=== PATIENT | female | born 1995 | race Caucasian/White ===

== ENCOUNTER 2016-09-08 17:02 | Emergency (ER) | payer OTHER, MEDICAID ==
[2016-09-08 17:17] VITALS: BP 130/90
[2016-09-08] MEDS ORDERED: Diphtheria,Pertussis(Acell),Tetanus Vaccine 0.5 ML SDV inactive IM ONE (17:29)
--- NOTE | 2016-09-08 17:36 | EDM.PDOC ---
ED HPI GENERAL MEDICAL PROBLEM - General Chief Complaint: Upper Extremity Injury/Pain Stated Complaint: RIGHT MIDDLE FINGER LACERATION Time Seen by Provider: 09/08/16 17:30 Source of Information: Reports: Patient History Limitations: Reports: No Limitations - History of Present Illness INITIAL COMMENTS - FREE TEXT/NARRATIVE: 21-year-old female presents the ED with a work related injury. 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 She suffered a laceration to the volar distal aspect of her right middle finger. Patient is right-hand dominant. Last tetanus toxoid was probably at age 12 or 13. No other injuries occurred. Onset: Today Onset Date: 09/08/16 Onset Time: 16:50 Duration: Minutes: Location: Reports: Upper Extremity, Right (right volar third finger) Quality: Reports: Ache, Throbbing Severity: Moderate Improves with: Reports: None Worsens with: Reports: None Context: Reports: Other (slipped with the knife while cleaning it.). Denies: Activity, Exercise, Lifting, Sick Contact, Trauma Associated Symptoms: Reports: No Other Symptoms Treatments ASSISTANT HALL DIRECTOR: Reports: Other (see below) (none) Right Hand Pain Score (Numeric/FACES): 2 - Related Data Allergies Allergy/AdvReac Type Severity Reaction Status Date / Time Sulfa (Sulfonamide Allergy Severe Hives Verified 09/08/16 17:13 Antibiotics) latex Allergy Rash Verified 09/08/16 17:13 bandaides Allergy Unknown Cannot Uncoded 09/08/16 17:13 Remember Home Meds: Home Meds . [No Known Home Meds] 09/08/16 [History] Past Medical History - Past Health History Medical/Surgical History: Denies Medical/Surgical History Social & Family History - Tobacco Use Smoking Status *Q: Never Smoker Second Hand Smoke Exposure: No - Alcohol Use Days Per Week of Alcohol Use: 0 - Recreational Drug Use Recreational Drug Use: No - Living Situation & Occupation Living situation: Reports: Single Occupation: Employed Review of Systems - Review of Systems Review Of Systems: See Below Constitutional: Reports: No Symptoms Eyes: Reports: No Symptoms Ears: Reports: No Symptoms Nose: Reports: No Symptoms Mouth/Throat: Reports: No Symptoms Respiratory: Reports: No Symptoms Cardiovascular: Reports: No Symptoms GI/Abdominal: Reports: No Symptoms Genitourinary: Reports: No Symptoms Musculoskeletal: Reports: No Symptoms Skin: Reports: No Symptoms Neurological: Reports: No Symptoms Psychiatric: Reports: No Symptoms Trauma Exam - Physical Exam Exam: See Below Exam Limited By: No Limitations General Appearance: Reports: Alert, WD/WN, No Apparent Distress Head: Reports: Atraumatic, Normocephalic Extremities: Other (examination was limited to her right hand. She has an avulsion injury to the volar aspect of the right third finger with approximately 1 cm in length and 3 mm in width. It is jagged and mildly bleeding. The wound itself is fairly superficial.) Neurologic: Reports: No Motor/Sensory Deficits, Alert, Normal Mood/Affect, Oriented x 3 Skin: Reports: Warm/Dry - [place] Coma Score Best Eye Response ([place]): (4) Open Spontaneously Best Verbal Response ([place]): (5) Oriented Best Motor Response (Rashi): (6) Obeys Commands Rashi Total: 15 Course - Vital Signs Last Recorded V/S: Last Vital Signs Temp 36.7 C 09/08/16 17:13 Pulse 81 09/08/16 17:13 Resp 16 09/08/16 17:13 BP 130/90 09/08/16 17:13 Pulse Ox 98 09/08/16 17:13 - Orders/Labs/Meds Orders: Active Orders 24 hr Category Date Time Status Vaccines to be Administered [RC] PER UNIT ROUTINE Care 09/08/16 17:29 Active Meds: Medications Discontinued Medications Generic Name Dose Route Start Last Admin Trade Name Freq PRN Reason Stop Dose Admin Diphtheria/Tetanus/Acell Pertussis 0.5 ml 09/08/16 17:29 09/08/16 17:57 Boostrix IM 09/08/16 17:30 0.5 ml .ONCE ONE Administration - Radiology Interpretation Free Text/Narrative:: 21-year-old female presents to the ED for work related injury. She has suffered a laceration to the volar aspect of her right third finger when she slipped with the knife at work while cleaning it. 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 Her injury is that of a complete avulsion injury of a length of 1 cm skin by 3 mm. It is fairly superficial wound and was not felt to be benefit from sutures. Her tetanus toxoid diphtheria and pertussis vaccine will be updated. She will have a compression bandage placed on the finger which he is to leave on for 48 hours and then she is to daily cleanse the wound with soap and water and apply topical antibiotic such as bacitracin or Polysporin. He is to keep it covered ideally with bandages but apparently she is allergic to some bandage glues. She will have to wear gloves in the workplace. The wound will take about 14 days to heal. Departure - Departure Time of Disposition: 17:36 Disposition: Home, Self-Care 01 Condition: fair Clinical Impression: Avulsion of skin of middle finger without complication Qualifiers: Encounter type: initial encounter Qualified Code(s): S61.208A - Unspecified open wound of other finger without damage to nail, initial encounter - Discharge Information Referrals: Carlos Alberto Clinton MD [Primary Care Provider] - Forms: ED Department Discharge Additional Instructions: Evaluation in the emergency department today in regards to injury to the right third finger that occurred in the workplace today when he slipped with the knife. You have suffered an avulsion injury where it should means that the skin and small portions of the subcutaneous tissue were completely excised by the knife. This left little room for suture repair. The wound is approaching a centimeter in length and 3 mm in width. Pressure dressing placed in the department with Telfa and topical antibiotic and wishes to be left in place ideally for at least 2 days. Then the wound to be cleansed daily with soap and water. Showering is okay. Then apply topical antibiotic such as bacitracin or Polysporin on the wound and then cover it to keep it clean until healed it will take about 17-21 days to completely scab over and heal .or tenderness diphtheria and pertussis vaccine has been updated today. We'll have to wear waterproof gloves in the workplace until the wound heals. - My Orders Last 24 Hours: My Active Orders 09/08/16 17:29 Vaccines to be Administered [RC] PER UNIT ROUTINE - Assessment/Plan Last 24 Hours: My Active Orders 09/08/16 17:29 Vaccines to be Administered [RC] PER UNIT ROUTINE
== END 2016-09-08 19:00 | disposition home or self-care (01) ==
LOC: JD.ED 17:02
DX: S61.202A Unspecified open wound of right middle finger without damage to nail, initial encounter (principal); Z88.2 Allergy status to sulfonamides; Z91.040 Latex allergy status; Z91.048 Other nonmedicinal substance allergy status; W26.0XXA Contact with knife, initial encounter; Y99.0 Civilian activity done for income or pay
CPT/HCPCS: 90471; 90715; 99282; 99283-25

== ENCOUNTER 2017-10-16 14:52 | Inpatient (IN) | payer MEDICAID ==
[2017-10-16] MEDS ORDERED: Nalbuphine 20 MG/1 ML Amp IVPUSH PRN (16:51)
[2017-10-16] MEDS ORDERED: Oxytocin/Lactated Ringers 10 UNIT/1,000 ML BAG IV SCH ×2 (16:51)
[2017-10-16] MEDS ORDERED: Sodium Chloride 0.9% 10 ML Syringe FLUSH PRN (16:51)
[2017-10-16] MEDS ORDERED: Ondansetron 4 MG/2 ML SDV IVPUSH PRN (16:51)
--- NOTE | 2017-10-16 17:00 | PCM.LDHP ---
L&D History of Present Illness - General Date of Service: 10/16/17 Admit Problem/Dx: Patient Status Order with Admit Dx/Problem 10/16/17 16:51 Patient Status [ADT] Routine Admission Diagnosis/Problem Admission Diagnosis/Problem Source of Information: Patient History Limitations: Reports: No Limitations - History of Present Illness Introduction:: Jen Burns is a 22 year old at 37 weeks 5 days by 16 week U/S who presents following sudden gush of fluid this morning. She reports she had a sudden gush of clear fluid at approximately 7:30 this morning. She has had continued leaking of fluid since that time. She has not noted any vaginal bleeding. She has only had several lower abdominal sharp pains that are questionable for contractions but these have not been regular. She denies any significant pressure or uterine contractions. Reports good movement. Timing/Duration: Reports: hour(s):, sudden onset Location, : Reports: Pelvic Severity: Mild Pain Score: 0 Improves with: Reports: None Worsens with: Reports: None Associated Symptoms: Reports: vaginal fluid, moderate amount. Denies: vaginal bleeding Present Illness Comments:: Jen Burns is a 22-year-old at 37 weeks 5 days by 16 week ultrasound. She has had routine care with Dr. Trimble since 16 weeks gestational age. Her labs show O- blood type with negative antibody screen. Her CBC on 05/18/2017 had a hematocrit of 40.0, hemoglobin of 13.4 and platelets of 247. She is rubella immune. She was RPR nonreactive, hepatitis B surface antigen negative and HIV negative. Her urine culture was negative. Her gonorrhea and chlamydia swab were negative. Her anatomy ultrasound was overall normal with a posterior placenta and repeat showed overall normal anatomy with a normal right ventricular outflow tract but there were a slight drop in growth parameters and repeat in September 2017 showed a normal growth with normal EM. She was given RhoGAM for Rh- status on 08/10/2017. Her repeat CBC on 08/10/2017 showed hematocrit of 40.8, hemoglobin 13.5 and platelets of 190. Her one-hour glucose test was elevated at 152. Her 3 hour glucose test was normal with values of fasting 95, 1 hour of 144, two-hour of 173 and 3 hour of 128. She was GBS negative on swab on 10/06/2017. She was given TDaP vaccine on 08/10/2017. - Related Data Allergies/Adverse Reactions: Allergies Allergy/AdvReac Type Severity Reaction Status Date / Time Sulfa (Sulfonamide Allergy Severe Hives Verified 09/08/16 17:13 Antibiotics) latex Allergy Rash Verified 09/08/16 17:13 bandaides Allergy Unknown Cannot Uncoded 09/08/16 17:13 Remember Home Medications: Home Meds Calcium Carbonate [Calcium] 500 mg PO DAILY 10/16/17 [History] PNV95/Ferrous Fumarate/FA [ Tablet] 1 each PO DAILY 10/16/17 [History] Past Medical History - Past Health History Medical/Surgical History: Denies Medical/Surgical History : 1 Para: 0 - Past Surgical History HEENT Surgical History: Reports: Oral Surgery ([place] tooth removal) Social & Family History - Tobacco Use Smoking Status *Q: Never Smoker - Alcohol Use Alcohol Use History: No - Recreational Drug Use Recreational Drug Use: No Drug Use in Last 12 Months: No - Living Situation & Occupation Living situation: Reports: Single Occupation: Employed H&P Review of Systems - Review of Systems: Review Of Systems: See Below General: Denies: Fever, Chills, Malaise, Fatigue HEENT: Denies: Post Nasal Drip, Sinus Congestion, Sore Throat, Visual Changes Pulmonary: Denies: Shortness of Breath, Cough Cardiovascular: Denies: Chest Pain, Palpitations Gastrointestinal: Denies: Abdominal Pain, Constipation, Diarrhea, Nausea, Vomiting Genitourinary: Denies: Dysuria, Frequency, Burning, Pain, Urgency Musculoskeletal: Reports: Back Pain (And hip pain) Skin: Denies: Rash, Lesions Psychiatric: Denies: Depression, Anxiety Neurological: Denies: Headache Hematologic/Lymphatic: Denies: Anemia, Easy Bleeding L&D Exam - Exam Exam: See Below - Vital Signs Vital Signs: Last Vital Signs Temp 37.3 C 10/16/17 15:21 Pulse 69 10/16/17 15:21 Resp 16 10/16/17 15:21 BP 139/85 10/16/17 15:21 Pulse Ox Weight: 81.193 kg - OB Specific Contraction Duration (sec): 0 Contraction Frequency (min): 0 Movement: Active Heart Tones: Present Heart Tones per Min: 140 (positive 15 x 15 accelerations, no decelerations ) Heart Rate (FHR) Variability: Moderate (6-25 bmp) Presentation: Vertex Estimated Weight: 7.5-8 lbs by Leopolds - Rivera Score Rivera Score Cervix Position: Midposition Rivera Score Consistency: Soft Rivera Score Effacement: >80% Rivera Score Dilation: 1-2 cm Rivera Score 's Station: -3 Rivera Score Total: 7 - Exam General: Alert, Oriented HEENT: Conjunctiva Clear, EOMI Neck: Supple, Trachea Midline Lungs: Clear to Auscultation, Normal Respiratory Effort Cardiovascular: Regular Rate, Regular Rhythm GI/Abdominal Exam: Soft, Non-Tender, No Distention. No: Guarding, Rigid, Rebound Genitourinary: Normal external exam Extremities: Normal Inspection, No Pedal Edema Skin: Warm, Dry, Intact Psychiatric: Alert, Normal Affect, Normal Mood - Patient Data Lab Results Last 24 hrs: Laboratory Results - last 24 hr 10/16/17 Range/Units 15:30 Membrane Rupture Positive H Result Diagrams: 10/16/17 17:10 10/16/17 17:10 - Problem List (1) 37 weeks gestation of SNOMED Code(s): 66858642 ICD Code: Z3A.37 - 37 WEEKS GESTATION OF Status: Acute Current Visit: Yes (2) Rh negative state in antepartum period SNOMED Code(s): 415616204 ICD Code: O09.899 - SUPERVISION OF OTHER HIGH RISK PREGNANCIES, UNSP TRIMESTER; Z67.91 - UNSPECIFIED BLOOD TYPE, RH NEGATIVE Status: Acute Current Visit: Yes (3) Rupture of membranes with clear amniotic fluid SNOMED Code(s): 03559962, 166324285 ICD Code: [id number] - Status: Acute Current Visit: Yes Problem List Initiated/Reviewed/Updated: Yes Orders Last 24hrs: Active Orders 24 hr Category Date Time Status Patient Status [ADT] Routine ADT 10/16/17 16:51 Active Activity as Tolerated [RC] PFP Care 10/16/17 16:51 Active Communication Order [RC] ASDIRECTED Care 10/16/17 16:51 Active Heart Tones [RC] ASDIRECTED Care 10/16/17 16:51 Active Monitoring [RC] CONTINUOUS Care 10/16/17 15:37 Inactive Non Stress Test [RC] PER UNIT ROUTINE Care 10/16/17 15:36 Inactive Notify Provider Vital Signs [RC] PRN Care 10/16/17 16:51 Active Notify Provider [RC] PFP Care 10/16/17 16:51 Active Notify Provider [RC] PRN Care 10/16/17 16:51 Active Peripheral IV Care [RC] . DIRECTED Care 10/16/17 16:51 Active Pump Management, Intrathecal [RC] ASDIRECTED Care 10/16/17 16:51 Active Up ad Lenka [RC] ASDIRECTED Care 10/16/17 15:37 Inactive Urinary Catheter Assessment [RC] ASDIRECTED Care 10/16/17 16:51 Active Vaginal Exam [RC] PRN Care 10/16/17 15:37 Inactive Vital Signs [RC] PER UNIT ROUTINE Care 10/16/17 15:36 Inactive Vital Signs [RC] PER UNIT ROUTINE Care 10/16/17 16:51 Active Regular Diet [DIET] Diet 10/16/17 Lunch Active CBC W/O DIFF,HEMOGRAM [HEME] Routine Lab 10/16/17 16:51 Ordered COMPREHENSIVE METABOLIC PN,CMP [CHEM] Routine Lab 10/16/17 16:51 Ordered PROTEIN/CREATININE RATIO,URINE [URCHEM] Routine Lab 10/16/17 16:51 Ordered RAPID PLASMA REAGIN,RPR [CHEM] Routine Lab 10/16/17 16:51 Ordered Acetaminophen [Tylenol] Med 10/16/17 16:51 Ordered 650 mg PO Q6H PRN Lactated Ringers [Ringers, Lactated] 1,000 ml Med 10/16/17 16:51 Ordered IV ASDIRECTED Nalbuphine [Nubain] Med 10/16/17 16:51 Ordered 10 mg IVPUSH Q2H PRN Ondansetron [Zofran] Med 10/16/17 16:51 Ordered 4 mg IVPUSH Q4H PRN Oxytocin/Lactated Ringers [Pitocin in LR 10 Units/1,000 Med 10/16/17 16:51 Ordered ML] 10 unit in 1,000 ml IV .CONTINUOUS Oxytocin/Lactated Ringers [Pitocin in LR 10 Units/1,000 Med 10/16/17 16:51 Ordered ML] 10 unit in 1,000 ml IV TITRATE Sodium Chloride 0.9% [Saline Flush] Med 10/16/17 16:51 Ordered 10 ml FLUSH ASDIRECTED PRN Electronic Heart Tones Ext w TOCO [WOMSER] Oth 10/16/17 16:51 Ordered Routine Electronic Heart Tones Internal [WOMSER] Per Unit Ot 10/16/17 16:51 Ordered Routine Peripheral IV Insertion Adult [OM.PC] Routine Oth 10/16/17 16:51 Ordered Resuscitation Status Routine Resus Stat 10/16/17 15:36 Ordered Medication Orders Acetaminophen (Tylenol) 650 mg PO Q6H PRN PRN Reason: Pain (Mild 1-3) and fever Lactated Ringer's (Ringers, Lactated) 1,000 mls @ 100 mls/hr IV ASDIRECTED GREGORIO Oxytocin/Lactated Ringer's (Pitocin In Lr 10 Units/1,000 Ml) 10 unit in 1,000 mls @ 100 mls/hr IV .CONTINUOUS GREGORIO Oxytocin/Lactated Ringer's (Pitocin In Lr 10 Units/1,000 Ml) 10 unit in 1,000 mls @ 12 mls/hr IV TITRATE GREGORIO; Protocol Nalbuphine HCl (Nubain) 10 mg IVPUSH Q2H PRN PRN Reason: Pain (moderate 4-6) Ondansetron HCl (Zofran) 4 mg IVPUSH Q4H PRN PRN Reason: Nausea/Vomiting Sodium Chloride (Saline Flush) 10 ml FLUSH ASDIRECTED PRN PRN Reason: Keep Vein Open Assessment/Plan Comment:: Refer to observation for spontaneous rupture membranes with clear fluid confirmed by Amnisure Start Pitocin for augmentation of labor Tenuous monitoring while on Pitocin Place IV and have Lactated Ringer's at 125 ml/hr Small amount of regular diet Activity as tolerated May have epidural as desired Plans to breast-feed after delivery Anticipate vaginal delivery unless otherwise indicated Garth Haider M.D. 6:46 PM 10/16/2017
[2017-10-16] MEDS: Lactated Ringers 1,000 ML IV SCH ×3 (18:31→21:46)
[2017-10-16] MEDS ORDERED: fentaNYL 100 MCG/2 ML SDV ONE (20:20)
[2017-10-16] MEDS: Acetaminophen 325 MG Tab PO PRN (20:25)
[2017-10-16] MEDS ORDERED: fentaNYL 100 MCG/2 ML SDV EPIDUR PRN (20:28)
[2017-10-16] MEDS ORDERED: diphenhydrAMINE 50 MG/ML SDV IVPUSH PRN (20:28)
[2017-10-16] MEDS ORDERED: ePHEDrine 50 MG/ML SDV IVPUSH PRN (20:28)
[2017-10-16] MEDS ORDERED: Bupivacaine/fentaNYL/NS 100 ML Bag EPIDUR SCH (20:30)
[2017-10-16] MEDS: Ampicillin 2 GM in Sodium Chloride 0.9% 100 ML IV SCH (20:30)
[2017-10-16] MEDS ORDERED: Sodium Chloride 0.9% 100 ML ONE (20:34)
--- NOTE | 2017-10-16 20:35 | PCM.PREANE ---
Preanesthetic Assessment - Procedure Proposed Procedure: yimi - Anesthesia/Transfusion/Family Hx Anesthesia History: No Prior Anesthesia Family History of Anesthesia Reaction: No Transfusion History: No Prior Transfusion(s) - Review of Systems General: No Symptoms Pulmonary: Cough (occasional) Cardiovascular: No Symptoms Gastrointestinal: No Symptoms Neurological: No Symptoms Other: Reports: None - Physical Assessment Pulse: 108 Respiratory Rate: 16 Blood Pressure: 132/84 Temperature: 100.9 F Vital Signs: Last Vital Signs Temp 100.9 F H 10/16/17 20:25 Pulse 108 H 10/16/17 19:01 Resp 16 10/16/17 15:21 BP 132/84 10/16/17 19:01 Pulse Ox Height: 5 ft Weight: 81.193 kg ASA Class: 2 Mental Status: Alert & Oriented x3 Airway Class: Mallampati = 2 Dentition: Reports: Normal Dentition Thyro-Mental Finger Breadths: 3 Mouth Opening Finger Breadths: 2 ROM/Head Extension: Full Lungs: Clear to Auscultation, Normal Respiratory Effort Cardiovascular: Regular Rate, Regular Rhythm - Lab Values: Laboratory Last Values WBC 11.58 K/mm3 (3.98-10.04) H 10/16/17 17:10 RBC 4.34 M/mm3 (3.98-5.22) 10/16/17 17:10 Hgb 12.8 gm/L (11.2-15.7) 10/16/17 17:10 Hct 38.3 % (34.1-44.9) 10/16/17 17:10 MCV 88.2 fl (79.4-94.8) 10/16/17 17:10 MCH 29.5 pg (25.6-32.2) 10/16/17 17:10 MCHC 33.4 g/dl (32.2-35.5) 10/16/17 17:10 RDW Std Deviation 43.1 fL (36.4-46.3) 10/16/17 17:10 Plt Count 164 K/mm3 (182-369) L 10/16/17 17:10 MPV 11.4 fl (9.4-12.3) 10/16/17 17:10 Sodium 137 mEq/L (136-145) 10/16/17 17:10 Potassium 3.4 mEq/L (3.5-5.1) L 10/16/17 17:10 Chloride 104 mEq/L (98-107) 10/16/17 17:10 Carbon Dioxide 23 mEq/L (21-32) 10/16/17 17:10 Anion Gap 13.4 (5-15) 10/16/17 17:10 BUN 11 mg/dL (7-18) 10/16/17 17:10 Creatinine 0.7 mg/dL (0.55-1.02) 10/16/17 17:10 Est Cr Clr Drug Dosing 90.55 mL/min 10/16/17 17:10 Estimated GFR (MDRD) > 60 mL/min (>60) 10/16/17 17:10 BUN/Creatinine Ratio 15.7 (14-18) 10/16/17 17:10 Glucose 79 mg/dL (74-106) 10/16/17 17:10 Calcium 8.6 mg/dL (8.5-10.1) 10/16/17 17:10 Total Bilirubin 0.5 mg/dL (0.2-1.0) 10/16/17 17:10 AST 25 U/L (15-37) 10/16/17 17:10 ALT 13 U/L (14-59) L 10/16/17 17:10 Alkaline Phosphatase 141 U/L (46-116) H 10/16/17 17:10 Total Protein 6.5 g/dl (6.4-8.2) 10/16/17 17:10 Albumin 2.3 g/dl (3.4-5.0) L 10/16/17 17:10 Globulin 4.2 gm/dL 10/16/17 17:10 Albumin/Globulin Ratio 0.6 (1-2) L 10/16/17 17:10 Membrane Rupture Positive H 10/16/17 15:30 - Allergies Allergies/Adverse Reactions: Allergies Allergy/AdvReac Type Severity Reaction Status Date / Time Sulfa (Sulfonamide Allergy Severe Hives Verified 09/08/16 17:13 Antibiotics) latex Allergy Rash Verified 09/08/16 17:13 bandaides Allergy Unknown Cannot Uncoded 09/08/16 17:13 Remember - Acknowledgements Anesthesia Type Planned: Epidural Pt an Appropriate Candidate for the Planned Anesthesia: Yes Alternatives and Risks of Anesthesia Discussed w Pt/Guardian: Yes Pt/Guardian Understands and Agrees with Anesthesia Plan: Yes PreAnesthesia Questionnaire - Past Health History Medical/Surgical History: Denies Medical/Surgical History Cardiovascular History: Reports: None Respiratory History: Reports: None Gastrointestinal History: Reports: None COMPENSATION EXPERT History: Reports: : 1 Para: 0 - Past Surgical History HEENT Surgical History: Reports: Oral Surgery ([place] tooth removal) - SUBSTANCE USE Smoking Status *Q: Never Smoker Tobacco Use Within Last Twelve Months: No Second Hand Smoke Exposure: No Days Per Week of Alcohol Use: 0 Recreational Drug Use History: No - HOME MEDS Home Medications: Home Meds Calcium Carbonate [Calcium] 500 mg PO DAILY 10/16/17 [History] PNV95/Ferrous Fumarate/FA [ Tablet] 1 each PO DAILY 10/16/17 [History] - CURRENT (IN HOUSE) MEDS Current Meds: Current Medications Acetaminophen (Tylenol) 650 mg PO Q6H PRN PRN Reason: Pain (Mild 1-3) and fever Last Admin: 10/16/17 20:25 Dose: 650 mg Diphenhydramine HCl (Benadryl) 25 mg IVPUSH Q6H PRN PRN Reason: pruritis Ephedrine Sulfate (Ephedrine Sulfate) 5 mg IVPUSH ASDIRECTED PRN PRN Reason: Hypotension Fentanyl (Sublimaze) 100 mcg EPIDUR Q3H PRN PRN Reason: Pain Fentanyl/Bupivacaine HCl (Fentanyl/Bupivacaine/Ns 2 Mcg-0.125% 100 Ml) 100 ml EPIDUR ASDIRECTED GREGORIO Lactated Ringer's (Ringers, Lactated) 1,000 mls @ 100 mls/hr IV ASDIRECTED GREGORIO Last Admin: 10/16/17 20:18 Dose: 100 mls/hr Oxytocin/Lactated Ringer's (Pitocin In Lr 10 Units/1,000 Ml) 10 unit in 1,000 mls @ 100 mls/hr IV .CONTINUOUS GREGORIO Oxytocin/Lactated Ringer's (Pitocin In Lr 10 Units/1,000 Ml) 10 unit in 1,000 mls @ 12 mls/hr IV TITRATE GREGORIO; Protocol Last Titration: 10/16/17 18:57 Dose: 4 munits/min, 24 mls/hr Nalbuphine HCl (Nubain) 10 mg IVPUSH Q2H PRN PRN Reason: Pain (moderate 4-6) Last Admin: 10/16/17 19:35 Dose: 10 mg Ondansetron HCl (Zofran) 4 mg IVPUSH Q4H PRN PRN Reason: Nausea/Vomiting Sodium Chloride (Saline Flush) 10 ml FLUSH ASDIRECTED PRN PRN Reason: Keep Vein Open Discontinued Medications Fentanyl (Sublimaze) Confirm Administered Dose 100 mcg .ROUTE .[facility] ONE Stop: 10/16/17 20:21
[2017-10-16] MEDS ORDERED: Gentamicin 400 MG in Sodium Chloride 0.9% 100 ML IV SCH (21:00)
[2017-10-17] MEDS: Acetaminophen 325 MG Tab PO PRN ×2 (01:59→09:56)
[2017-10-17] MEDS: Ampicillin 2 GM in Sodium Chloride 0.9% 100 ML IV SCH (02:00)
[2017-10-17] MEDS ORDERED: Bupivacaine 0.25% 10 ML SDV ONE (02:00)
[2017-10-17] MEDS ORDERED: Citric Acid/Sodium Citrate Solution 30 ML Cup ONE (03:05)
[2017-10-17] MEDS ORDERED: Metoclopramide 10 MG/2 ML SDV ONE (03:05)
[2017-10-17] MEDS ORDERED: ceFAZolin 2 GM in Premix Bag 1 BAG IV ONE (03:10)
[2017-10-17] MEDS ORDERED: Sodium Chloride 0.9% 10 ML Syringe FLUSH PRN ×2 (03:10→06:22)
[2017-10-17] MEDS ORDERED: Citric Acid/Sodium Citrate Solution 30 ML Cup PO ONE (03:10)
[2017-10-17] MEDS ORDERED: Metoclopramide 10 MG/2 ML SDV IVPUSH ONE (03:10)
[2017-10-17] MEDS ORDERED: Oxytocin/Lactated Ringers 10 UNIT/1,000 ML BAG IV SCH ×2 (03:15→06:22)
[2017-10-17] MEDS ORDERED: Lactated Ringers 1,000 ML IV SCH (03:15)
[2017-10-17] MEDS ORDERED: Bupivacaine 0.5% 30 ML SDV ONE (03:17)
[2017-10-17] MEDS ORDERED: Ketorolac 30 MG/ML SDV ONE (03:19)
[2017-10-17] MEDS ORDERED: Oxytocin 10 Units/1 ML SDV ONE (03:19)
[2017-10-17] MEDS ORDERED: Lactated Ringers 2,000 ML ONE (03:19)
[2017-10-17] MEDS ORDERED: ceFAZolin 1 GM Vial ONE (03:19)
[2017-10-17] MEDS ORDERED: Morphine PF 10 MG/10 ML SDV ONE (03:19)
[2017-10-17] MEDS ORDERED: Ondansetron 4 MG/2 ML SDV ONE (03:19)
[2017-10-17] MEDS ORDERED: fentaNYL 100 MCG/2 ML SDV ONE (03:23)
[2017-10-17] MEDS ORDERED: Lidocaine 2% with EPINEPHrine 1:200,000 20 ML SDV ONE (03:23)
[2017-10-17] MEDS ORDERED: Sodium Bicarbonate 8.4% 50 MEQ/50 ML SDV ONE (03:23)
--- NOTE | 2017-10-17 03:23 | PCM.PNLD ---
Labor Progress Note - VS & Meds Vital Signs: Last Vital Signs Temp 37.2 C 10/17/17 01:59 Pulse 108 H 10/16/17 20:37 Resp 16 10/16/17 20:37 BP 132/84 10/16/17 20:37 Pulse Ox Active Medications: Current Medications Acetaminophen (Tylenol) 650 mg PO Q6H PRN PRN Reason: Pain (Mild 1-3) and fever Last Admin: 10/17/17 01:59 Dose: 650 mg Diphenhydramine HCl (Benadryl) 25 mg IVPUSH Q6H PRN PRN Reason: pruritis Ephedrine Sulfate (Ephedrine Sulfate) 5 mg IVPUSH ASDIRECTED PRN PRN Reason: Hypotension Fentanyl (Sublimaze) 100 mcg EPIDUR Q3H PRN PRN Reason: Pain Last Admin: 10/16/17 21:07 Dose: 100 mcg Fentanyl/Bupivacaine HCl (Fentanyl/Bupivacaine/Ns 2 Mcg-0.125% 100 Ml) 100 ml EPIDUR ASDIRECTED GREGORIO Last Admin: 10/16/17 21:10 Dose: 100 ml Lactated Ringer's (Ringers, Lactated) 1,000 mls @ 100 mls/hr IV ASDIRECTED GREGORIO Last Admin: 10/16/17 21:46 Dose: 100 mls/hr Oxytocin/Lactated Ringer's (Pitocin In Lr 10 Units/1,000 Ml) 10 unit in 1,000 mls @ 100 mls/hr IV .CONTINUOUS GREGORIO Oxytocin/Lactated Ringer's (Pitocin In Lr 10 Units/1,000 Ml) 10 unit in 1,000 mls @ 12 mls/hr IV TITRATE GREGORIO; Protocol Last Titration: 10/17/17 02:16 Dose: 0 munits/min, 0 mls/hr Ampicillin Sodium 2 gm/ Sodium (Chloride) 100 mls @ 200 mls/hr IV Q6H GREGORIO Last Admin: 10/17/17 02:00 Dose: 200 mls/hr Gentamicin Sulfate 400 mg/ (Sodium Chloride) 110 mls @ 200 mls/hr IV Q24H GREGORIO Last Admin: 10/16/17 21:48 Dose: 200 mls/hr Nalbuphine HCl (Nubain) 10 mg IVPUSH Q2H PRN PRN Reason: Pain (moderate 4-6) Last Admin: 10/16/17 19:35 Dose: 10 mg Ondansetron HCl (Zofran) 4 mg IVPUSH Q4H PRN PRN Reason: Nausea/Vomiting Sodium Chloride (Saline Flush) 10 ml FLUSH ASDIRECTED PRN PRN Reason: Keep Vein Open Discontinued Medications Citric Acid/Sodium Citrate (Bicitra Solution) Confirm Administered Dose 30 ml .ROUTE .STK-MED ONE Stop: 10/17/17 03:06 Fentanyl (Sublimaze) Confirm Administered Dose 100 mcg .ROUTE .STK-MED ONE Stop: 10/16/17 20:21 Last Admin: 10/16/17 22:51 Dose: Not Given Sodium Chloride (Normal Saline) Confirm Administered Dose 100 mls @ as directed .ROUTE .STK-MED ONE Stop: 10/16/17 20:35 Last Admin: 10/16/17 22:51 Dose: Not Given Metoclopramide HCl (Reglan) Confirm Administered Dose 10 mg .ROUTE .STK-MED ONE Stop: 10/17/17 03:06 - Uterine Contractions Uterine Monitoring Mode: External [place] Contraction Frequency (min): 2-3 Contraction Duration (sec): 45 Contraction Intensity: Moderate to Strong Uterine Resting Tone: Soft - Monitoring Monitor Mode: Doppler/Auscultation Heart Rate (FHR) Baseline: 165 Heart Rate (FHR) Variability: Moderate (6-25 bmp) Accelerations: Absent Decelerations: Variable, Recurrent (>50% x 20 min) Strip Review: Category II - Vaginal Exam Dilation (cm): 4 Effacement (Percent): 100 Station: -2 Cervical Position: Midposition - Labor Progress (Free Text) Labor Progress: Patient with recurring fever to 101.7 F end with recheck of her cervix containing show slow dilation only at 4/100/-2/midposition/soft per the nurse's exam. 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 Review of her monitoring shows that she has had periods of minimal variability as well as marked variability with baseline going to the 160s and even up to 165s and 170s with recurrent variable decelerations and some going as low as the 80s. Had a discussion with the patient regarding concern for poor outcome given continued febrile illness despite initiation of antibiotics for chorioamnionitis and with her continued category 2 heart tracing. Discussed with patient that given this situation my recommendation is for a primary section. Patient and agree with plan and consents were signed. Type and screen will be ordered on the patient. We will give ampicillin 2 g prior to her section and then continue her antibiotics for chorioamnionitis for 1 dose after delivery and reevaluate at that time for need for additional doses of antibiotics. Plan is for primary section. Discussed risks, benefits and alternatives with the patient and she was in agreement with plan. We will go for section as soon as possible. Garth Haider M.D. 3:23 AM 10/17/2017
[2017-10-17] MEDS ORDERED: diphenhydrAMINE 50 MG/ML SDV IVPUSH PRN ×2 (03:50→06:22)
[2017-10-17] MEDS ORDERED: Meperidine PF 50 MG/ML Syringe IVPUSH PRN (03:50)
[2017-10-17] MEDS ORDERED: fentaNYL 100 MCG/2 ML SDV IVPUSH PRN (03:50)
[2017-10-17] MEDS ORDERED: ePHEDrine 50 MG/ML SDV IVPUSH PRN ×2 (03:50→06:22)
[2017-10-17] MEDS ORDERED: Ondansetron 4 MG/2 ML SDV IVPUSH PRN (03:50)
[2017-10-17] MEDS ORDERED: Meperidine PF 50 MG/ML Syringe ONE (04:13)
--- NOTE | 2017-10-17 04:51 | PCM.POSTAN ---
POST ANESTHESIA ASSESSMENT - MENTAL STATUS Mental Status: Alert, Oriented - VITAL SIGNS Pulse Rate: 72 SaO2: 99 Resp Rate: 19 Blood Pressure: 122/73 Temperature: 100.4 F - RESPIRATORY Respiratory Status: Respiratory Rate WNL, Airway Patent, O2 Saturation Stable, Supplemental Oxygen - CARDIOVASCULAR CV Status: Pulse Rate WNL, Blood Pressure Stable - GASTROINTESTINAL GI Status: No Symptoms - PAIN Pain Score: 0 - POST OP HYDRATION Hydration Status: Adequate & Stable
--- NOTE | 2017-10-17 05:14 | PCM.OPNOTE ---
- General Post-Op/Procedure Note Date of Surgery/Procedure: 10/17/17 Operative Procedure(s): Primary section Findings: Live male infant delivered in vertex position at 0404, weight of 3110 g, Apgars of 8 and 9. Overall normal-appearing uterus except for small fibroid at the posterior edge of the uterine fundus near the left fallopian tube , bilateral tubes and ovaries. Pre Op Diagnosis: Nonreassuring heart tones in the setting of chorioamnionitis and preeclampsia Post-Op Diagnosis: Same status post primary section Anesthesia Technique: Epidural Primary Surgeon: Garth Haider Anesthesia Provider: Thalia Echevarria Curtain Feller Blindstitch: Renetta Peña Reason Curtain Feller Blindstitch Was Necessary: Patient safety and reduction in morbidity and mortality Role of Curtain Feller Blindstitch: Retraction for visualization during the procedure Pathology: Placenta Fluid Replacement, Intraop: 1,700 Output, Urine Amount: 275 EBL in mLs: 900 Complications: None Condition: Good Free Text/Narrative:: Procedure in Detail: The patient was seen on labor and delivery after she was being evaluated and determined to have nonreassuring heart tones remote from delivery in the setting of chorioamnionitis and preeclampsia. Was felt that for safety of the infant that primary section should be performed. This was discussed with the patient and she agreed to the procedure. The risks, benefits and complications were discussed with the patient. The patient desired to proceed with section and appropriate consents were signed. The patient was taken to operating room #1. A Time Out was held and the patient was identified using 2 identifiers and the procedure was confirmed. The patient was dosed through epidural anesthesia and was placed in dorsal supine position with leftward tilt. The patient was prepped and draped in the usual sterile manner. The abdominal skin was tested and the epidural anesthesia was found to be adequate. The skin was injected with 0.5% marcaine for local anesthesia. A Pfannenstiel skin incision was made and carried down through the subcutaneous tissue to the fascia with the scapel. The fascia was nicked in the midline using a scalpel and the fascial incision was extended transversely with Treviño scissors. The superior aspect of the fascia was grasped with Shanna clamps and tented upwards. The fascia was from the underlying rectus muscle bluntly and sharply with Treviño scissors. Attention was then turned to the inferior aspect of the fascia and was grasped using Shanna clamps and tented upwards. The underlying rectus muscle was dissected off bluntly and sharply with Treviño scissors. The peritoneum was identified and entered bluntly. The bladder blade was inserted and the lower uterine segment was identified. A low transverse uterine incision was made sharply with a scalpel and extended laterally bluntly. The infant's head was brought to the uterine incision, the bladder blade was removed and the was delivered atraumatically. A live male was delivered in vertex position at 0404, wt of 3110 grams, 6 pounds and 13.7 ounces. APGARS were 8 & 9. The nose and mouth were suctioned with bulb suction, the cord was doubly clamped and cut and was transferred to the awaiting animal cruelty investigator. The placenta was removed intact and appeared normal with a three vessel cord. The placenta was sent for pathology. The uterus was exteriorized and the uterine cavity was cleaned using lap sponges. The hysterotomy was closed with a running locked suture of 0-Vicryl. A second suture of 0-Vicryl was used to imbricate the hysterotomy. The hysterotomy was hemostatic. The uterus, tubes and ovaries appeared overall normal except for a small fibroid on the posterior edge of the uterine fundus near the left fallopian tube. The uterus was then returned into the abdominal cavity. The hysterotomy was noted to remain hemostatic inside the abdominal cavity. The fascia was noted to be hemostatic and the fascia was then reapproximated with running sutures of 0-Vicryl. The skin was reapproximated using 4-0 Monocryl and a Prineo dressing was applied over the incision. Instrument, sponge, and needle counts were correct prior to the abdominal closure and at the conclusion of the case. Garth Haider M.D. 5:13 AM 10/17/2017
[2017-10-17] MEDS ORDERED: Ondansetron 4 MG Tab.DIS PO PRN (06:22)
[2017-10-17] MEDS ORDERED: Naloxone 0.4 MG/ML SDV IVPUSH PRN (06:22)
[2017-10-17] MEDS ORDERED: Docusate Sodium 100 MG Cap PO PRN (06:22)
[2017-10-17] MEDS ORDERED: Dextrose 5%-Lactated Ringers 1,000 ML IV SCH (06:22)
[2017-10-17] MEDS ORDERED: Acetaminophen/oxyCODONE 325-5 MG Tab PO PRN ×2 (06:22)
[2017-10-17] MEDS ORDERED: Lanolin 100% Cream 7 GM Tube TOP PRN (06:22)
[2017-10-17] MEDS: Prenatal Multivitamin with Calcium/Folic Acid/Iron Tab PO SCH (09:48)
[2017-10-17] MEDS ORDERED: Acetaminophen 325 MG Tab PO PRN (09:51)
[2017-10-17] MEDS ORDERED: Clindamycin Phosphate 900 MG in Sodium Chloride 0.9% 100 ML IV ONE (10:00)
[2017-10-17] MEDS ORDERED: Ampicillin 2 GM in Sodium Chloride 0.9% 100 ML IV ONE (10:00)
[2017-10-17] MEDS: Ketorolac 30 MG/ML SDV IVPUSH SCH ×3 (11:04→22:37)
--- NOTE | 2017-10-17 17:56 | PCM48HPAN ---
Post Anesthesia Note - EVALUATION WITHIN 48HRS OF ANESTHETIC Vital Signs in Normal Range: Yes Patient Participated in Evaluation: Yes Respiratory Function Stable: Yes Airway Patent: Yes Cardiovascular Function Stable: Yes Hydration Status Stable: Yes Pain Control Satisfactory: Yes Nausea and Vomiting Control Satisfactory: Yes Mental Status Recovered: Yes Pulse Rate: 69 Resp Rate: 16 Temperature: 98.1 F Blood Pressure: 129/73 - COMMENTS/OBSERVATIONS Free Text/Narrative:: sitting up in bed. smiling with no compliants- denies pain
[2017-10-17] MEDS ORDERED: Gentamicin 400 MG in Sodium Chloride 0.9% 100 ML IV ONE ×2 (21:30→23:00)
[2017-10-18] MEDS ORDERED: Ibuprofen 600 MG Tab PO PRN (04:30)
[2017-10-18] MEDS: Prenatal Multivitamin with Calcium/Folic Acid/Iron Tab PO SCH (08:27)
--- NOTE | 2017-10-18 12:16 | PCM.SN ---
- Free Text/Narrative Note: Post Operative Progress Note POD # 1 Subjective: Doing well overall. Ambulating without difficulty. Lochia minimal. Franks draining clear urine and was removed shortly prior to being seen this morning. Passing flatus. Tolerating regular diet without nausea or vomiting. Pain controlled with oral medications. Bottle feeding with minimal difficulty. Denies any fevers or chills this morning. Reports she had small fever last evening with elevated temperature. Objective: Vitals: Vital Signs - 24 hr 10/17/17 10/17/17 10/17/17 13:02 13:23 13:33 Temperature 36.7 C 36.7 C Temperature [ Temporal] Pulse, 63 102 H 69 Peripheral Respiratory 16 16 Rate Blood Pressure 126/103 H 129/73 129/73 O2 Sat by Pulse 95 95 100 Oximetry 10/17/17 10/17/17 10/17/17 15:49 15:50 17:56 Temperature 37.1 C 37.1 C 36.7 C Temperature [ Temporal] Pulse, 76 85 69 Peripheral Respiratory 16 16 16 Rate Blood Pressure 140/76 140/76 129/73 O2 Sat by Pulse 99 98 Oximetry 10/17/17 10/17/17 10/17/17 20:40 20:44 20:50 Temperature 38.4 C H Temperature [ 38.4 C H Temporal] Pulse, 84 Peripheral Respiratory Rate Blood Pressure 135/70 O2 Sat by Pulse 94 L Oximetry 10/18/17 10/18/17 10/18/17 00:40 04:00 05:20 Temperature Temperature [ 36.8 C Temporal] Pulse, 66 73 Peripheral Respiratory Rate Blood Pressure 120/73 155/90 H O2 Sat by Pulse 96 99 Oximetry 10/18/17 10/18/17 10/18/17 05:22 06:04 08:27 Temperature 36.8 C Temperature [ Temporal] Pulse, 61 69 69 Peripheral Respiratory 16 Rate Blood Pressure 154/91 H 143/84 H 130/80 O2 Sat by Pulse 100 98 98 Oximetry 10/18/17 08:28 Temperature Temperature [ Temporal] Pulse, 76 Peripheral Respiratory Rate Blood Pressure O2 Sat by Pulse 98 Oximetry Physical Exam General: Alert and oriented, no acute distress Lungs: Clear to auscultation bilaterally Heart: Regular rate and rhythm Abdomen: Soft, minimal appropriate tenderness, non-distended, fundus midline, nontender and below the umbilicus Incision: Clean, dry and intact, no erythema, bleeding or drainage Extremities: No edema Labs: Laboratory Tests 10/16/17 10/16/17 10/16/17 Range/Units 03:23 15:30 17:10 WBC 11.58 H (3.98-10.04) K/mm3 RBC 4.34 (3.98-5.22) M/mm3 Hgb 12.8 (11.2-15.7) gm/L Hct 38.3 (34.1-44.9) % MCV 88.2 (79.4-94.8) fl MCH 29.5 (25.6-32.2) pg MCHC 33.4 (32.2-35.5) g/dl RDW Std Deviation 43.1 (36.4-46.3) fL Plt Count 164 L (182-369) K/mm3 MPV 11.4 (9.4-12.3) fl Neut % (Auto) (34.0-71.1) % Lymph % (Auto) (19.3-51.7) % [place] % (Auto) (4.7-12.5) % Eos % (Auto) (0.7-5.8) Baso % (Auto) (0.1-1.2) % Neut # (Auto) (1.56-6.13) K/mm3 Lymph # (Auto) (1.18-3.74) K/mm3 [place] # (Auto) (0.24-0.36) K/mm3 Eos # (Auto) (0.04-0.36) K/mm3 Baso # (Auto) (0.01-0.08) K/mm3 Manual Slide Review Sodium (136-145) mEq/L Potassium (3.5-5.1) mEq/L Chloride (98-107) mEq/L Carbon Dioxide (21-32) mEq/L Anion Gap (5-15) BUN (7-18) mg/dL Creatinine (0.55-1.02) mg/dL Est Cr Clr Drug Dosing mL/min Estimated GFR (MDRD) (>60) mL/min BUN/Creatinine Ratio (14-18) Glucose (74-106) mg/dL Calcium (8.5-10.1) mg/dL Total Bilirubin (0.2-1.0) mg/dL AST (15-37) U/L ALT (14-59) U/L Alkaline Phosphatase (46-116) U/L Total Protein (6.4-8.2) g/dl Albumin (3.4-5.0) g/dl Globulin gm/dL Albumin/Globulin Ratio (1-2) Ur Random Creatinine (30.0-125.0) mg/dL U Random Total Protein (0.0-11.8) mg/dL Protein/Creatinin Ratio (0-149) mg/g Membrane Rupture Positive H Blood Type O NEGATIVE Gel Antibody Screen Negative Screen RhIG Candidate? Rhogam Indicated 10/16/17 10/17/17 10/17/17 Range/Units 17:10 00:01 10:55 WBC 13.72 H (3.98-10.04) K/mm3 RBC 3.46 L (3.98-5.22) M/mm3 Hgb 10.2 L (11.2-15.7) gm/L Hct 30.9 L (34.1-44.9) % MCV 89.3 (79.4-94.8) fl MCH 29.5 (25.6-32.2) pg MCHC 33.0 (32.2-35.5) g/dl RDW Std Deviation 42.9 (36.4-46.3) fL Plt Count 136 L (182-369) K/mm3 MPV 11.1 (9.4-12.3) fl Neut % (Auto) 80.3 H (34.0-71.1) % Lymph % (Auto) 11.2 L (19.3-51.7) % [place] % (Auto) 8.3 (4.7-12.5) % Eos % (Auto) 0 L (0.7-5.8) Baso % (Auto) 0.1 (0.1-1.2) % Neut # (Auto) 11.01 H (1.56-6.13) K/mm3 Lymph # (Auto) 1.53 (1.18-3.74) K/mm3 [place] # (Auto) 1.14 H (0.24-0.36) K/mm3 Eos # (Auto) 0.00 L (0.04-0.36) K/mm3 Baso # (Auto) 0.02 (0.01-0.08) K/mm3 Manual Slide Review Sodium 137 (136-145) mEq/L Potassium 3.4 L (3.5-5.1) mEq/L Chloride 104 (98-107) mEq/L Carbon Dioxide 23 (21-32) mEq/L Anion Gap 13.4 (5-15) BUN 11 (7-18) mg/dL Creatinine 0.7 (0.55-1.02) mg/dL Est Cr Clr Drug Dosing 90.55 mL/min Estimated GFR (MDRD) > 60 (>60) mL/min BUN/Creatinine Ratio 15.7 (14-18) Glucose 79 (74-106) mg/dL Calcium 8.6 (8.5-10.1) mg/dL Total Bilirubin 0.5 (0.2-1.0) mg/dL AST 25 (15-37) U/L ALT 13 L (14-59) U/L Alkaline Phosphatase 141 H (46-116) U/L Total Protein 6.5 (6.4-8.2) g/dl Albumin 2.3 L (3.4-5.0) g/dl Globulin 4.2 gm/dL Albumin/Globulin Ratio 0.6 L (1-2) Ur Random Creatinine 53.2 (30.0-125.0) mg/dL U Random Total Protein 120.4 H (0.0-11.8) mg/dL Protein/Creatinin Ratio 2263.2 H (0-149) mg/g Membrane Rupture Blood Type Gel Antibody Screen Screen RhIG Candidate? Rhogam Indicated 10/17/17 10/18/17 Range/Units 19:45 06:35 WBC 13.51 H (3.98-10.04) K/mm3 RBC 3.62 L (3.98-5.22) M/mm3 Hgb 10.7 L (11.2-15.7) gm/L Hct 32.2 L (34.1-44.9) % MCV 89.0 (79.4-94.8) fl MCH 29.6 (25.6-32.2) pg MCHC 33.2 (32.2-35.5) g/dl RDW Std Deviation 43.1 (36.4-46.3) fL Plt Count 158 L (182-369) K/mm3 MPV 10.7 (9.4-12.3) fl Neut % (Auto) 77.4 H (34.0-71.1) % Lymph % (Auto) 12.1 L (19.3-51.7) % [place] % (Auto) 9.9 (4.7-12.5) % Eos % (Auto) 0.3 L (0.7-5.8) Baso % (Auto) 0.1 (0.1-1.2) % Neut # (Auto) 10.45 H (1.56-6.13) K/mm3 Lymph # (Auto) 1.64 (1.18-3.74) K/mm3 [place] # (Auto) 1.34 H (0.24-0.36) K/mm3 Eos # (Auto) 0.04 (0.04-0.36) K/mm3 Baso # (Auto) 0.01 (0.01-0.08) K/mm3 Manual Slide Review Abnormal smear Sodium (136-145) mEq/L Potassium (3.5-5.1) mEq/L Chloride (98-107) mEq/L Carbon Dioxide (21-32) mEq/L Anion Gap (5-15) BUN (7-18) mg/dL Creatinine (0.55-1.02) mg/dL Est Cr Clr Drug Dosing mL/min Estimated GFR (MDRD) (>60) mL/min BUN/Creatinine Ratio (14-18) Glucose (74-106) mg/dL Calcium (8.5-10.1) mg/dL Total Bilirubin (0.2-1.0) mg/dL AST (15-37) U/L ALT (14-59) U/L Alkaline Phosphatase (46-116) U/L Total Protein (6.4-8.2) g/dl Albumin (3.4-5.0) g/dl Globulin gm/dL Albumin/Globulin Ratio (1-2) Ur Random Creatinine (30.0-125.0) mg/dL U Random Total Protein (0.0-11.8) mg/dL Protein/Creatinin Ratio (0-149) mg/g Membrane Rupture Blood Type Cancelled Gel Antibody Screen Cancelled Screen 1 ros/5 flds - neg RhIG Candidate? Yes Rhogam Indicated Cancelled ASSESSMENT: 22-year-old female G 1 P 1001 s/p primary section POD #1 for nonreassuring heart tones in the setting of chorioamnionitis and remote from delivery and patient with preeclampsia without severe features prior to delivery, complicated by Rh- status and has received RhoGAM after delivery PLAN: Doing well Patient with cardio amnionitis and received ampicillin, gentamicin and clindamycin for 1 additional dose after delivery. Last dose of gentamicin was last evening. Last dose of ampicillin and clindamycin yesterday morning. Patient had 1 additional fever last evening around timing of her dose of gentamicin but no additional fever since then. Will continue to monitor for signs of endomyometritis. Bottle feeding with minimal difficulty. Assist as needed Incision healing well. Continue to keep clean and dry. Lochia minimal. Continue to monitor for appropriate lochia. Continue routine post-operative care Patient with O- blood type and with O+ blood. Patient received RhoGAM on 10/18/2017. Anticipate discharge home tomorrow if continues to be afebrile and improving Garth Haider MD 12:17 PM 10/18/2017
[2017-10-19 08:49] VITALS: BP 124/82
--- NOTE | 2017-10-19 09:16 | PCM.SN ---
- Free Text/Narrative Note: Post Operative Progress Note POD # 2 Subjective: Doing well overall. Ambulating without difficulty. Lochia minimal. Voiding without difficulty. Passing flatus and has had a bowel movement. Tolerating regular diet without nausea or vomiting. Pain controlled with oral medications. Bottle feeding with minimal difficulty. Denies any fevers or chills. Objective: Vitals: Vital Signs - 24 hr 10/18/17 10/18/17 10/19/17 14:49 20:00 00:05 Temperature 36.7 C 36.3 C Temperature [ 36.6 C Temporal] Pulse, 65 56 L Peripheral Pulse, 62 Peripheral [ Right] Respiratory 16 16 14 Rate Blood Pressure 133/92 H 140/87 Blood Pressure 142/82 H [Right Arm] O2 Sat by Pulse 97 99 97 Oximetry 10/19/17 10/19/17 10/19/17 02:41 04:39 04:43 Temperature 36.3 C 36.5 C Temperature [ Temporal] Pulse, 53 L 62 Peripheral Pulse, Peripheral [ Right] Respiratory 14 Rate Blood Pressure 143/77 H Blood Pressure [Right Arm] O2 Sat by Pulse 97 99 Oximetry 10/19/17 08:20 Temperature 36.4 C Temperature [ Temporal] Pulse, 52 L Peripheral Pulse, Peripheral [ Right] Respiratory 18 Rate Blood Pressure 124/82 Blood Pressure [Right Arm] O2 Sat by Pulse 98 Oximetry Physical Exam General: Alert and oriented, no acute distress Lungs: Clear to auscultation bilaterally Heart: Regular rate and rhythm Abdomen: Soft, minimal appropriate tenderness, non-distended, fundus midline, nontender and below the umbilicus Incision: Clean, dry and intact, no erythema, bleeding or drainage Extremities: No edema Labs: Laboratory Last Values WBC 13.51 K/mm3 (3.98-10.04) H 10/18/17 06:35 RBC 3.62 M/mm3 (3.98-5.22) L 10/18/17 06:35 Hgb 10.7 gm/L (11.2-15.7) L 10/18/17 06:35 Hct 32.2 % (34.1-44.9) L 10/18/17 06:35 MCV 89.0 fl (79.4-94.8) 10/18/17 06:35 MCH 29.6 pg (25.6-32.2) 10/18/17 06:35 MCHC 33.2 g/dl (32.2-35.5) 10/18/17 06:35 RDW Std Deviation 43.1 fL (36.4-46.3) 10/18/17 06:35 Plt Count 158 K/mm3 (182-369) L 10/18/17 06:35 MPV 10.7 fl (9.4-12.3) 10/18/17 06:35 Neut % (Auto) 77.4 % (34.0-71.1) H 10/18/17 06:35 Lymph % (Auto) 12.1 % (19.3-51.7) L 10/18/17 06:35 [place] % (Auto) 9.9 % (4.7-12.5) 10/18/17 06:35 Eos % (Auto) 0.3 (0.7-5.8) L 10/18/17 06:35 Baso % (Auto) 0.1 % (0.1-1.2) 10/18/17 06:35 Neut # (Auto) 10.45 K/mm3 (1.56-6.13) H 10/18/17 06:35 Lymph # (Auto) 1.64 K/mm3 (1.18-3.74) 10/18/17 06:35 [place] # (Auto) 1.34 K/mm3 (0.24-0.36) H 10/18/17 06:35 Eos # (Auto) 0.04 K/mm3 (0.04-0.36) 10/18/17 06:35 Baso # (Auto) 0.01 K/mm3 (0.01-0.08) 10/18/17 06:35 Manual Slide Review Abnormal smear 10/18/17 06:35 Sodium 137 mEq/L (136-145) 10/16/17 17:10 Potassium 3.4 mEq/L (3.5-5.1) L 10/16/17 17:10 Chloride 104 mEq/L (98-107) 10/16/17 17:10 Carbon Dioxide 23 mEq/L (21-32) 10/16/17 17:10 Anion Gap 13.4 (5-15) 10/16/17 17:10 BUN 11 mg/dL (7-18) 10/16/17 17:10 Creatinine 0.7 mg/dL (0.55-1.02) 10/16/17 17:10 Est Cr Clr Drug Dosing 90.55 mL/min 10/16/17 17:10 Estimated GFR (MDRD) > 60 mL/min (>60) 10/16/17 17:10 BUN/Creatinine Ratio 15.7 (14-18) 10/16/17 17:10 Glucose 79 mg/dL (74-106) 10/16/17 17:10 Calcium 8.6 mg/dL (8.5-10.1) 10/16/17 17:10 Total Bilirubin 0.5 mg/dL (0.2-1.0) 10/16/17 17:10 AST 25 U/L (15-37) 10/16/17 17:10 ALT 13 U/L (14-59) L 10/16/17 17:10 Alkaline Phosphatase 141 U/L (46-116) H 10/16/17 17:10 Total Protein 6.5 g/dl (6.4-8.2) 10/16/17 17:10 Albumin 2.3 g/dl (3.4-5.0) L 10/16/17 17:10 Globulin 4.2 gm/dL 10/16/17 17:10 Albumin/Globulin Ratio 0.6 (1-2) L 10/16/17 17:10 Ur Random Creatinine 53.2 mg/dL (30.0-125.0) 10/17/17 00:01 U Random Total Protein 120.4 mg/dL (0.0-11.8) H 10/17/17 00:01 Protein/Creatinin Ratio 2263.2 mg/g (0-149) H 10/17/17 00:01 Membrane Rupture Positive H 10/16/17 15:30 RPR Non-reactive (NONREACTIVE) 10/16/17 06:35 Blood Type O NEGATIVE 10/16/17 03:23 Gel Antibody Screen Negative 10/16/17 03:23 Screen 1 ros/5 flds - neg 10/17/17 19:45 RhIG Candidate? Yes 10/17/17 19:45 Rhogam Indicated Cancelled 10/17/17 19:45 ASSESSMENT: 22-year-old female G 1 P 1001 s/p primary section POD #2 for nonreassuring heart tones in the setting of chorioamnionitis and remote from delivery and patient with preeclampsia without severe features prior to delivery, complicated by Rh- status and has received RhoGAM after delivery PLAN: Doing well Patient with chorioamnionitis and received ampicillin, gentamicin and clindamycin for 1 additional dose after delivery. Last dose of gentamicin was in evening of 10/17/2017. Last dose of ampicillin and clindamycin in the morning of 10/17/2017. Afebrile in the last 24 hours. Patient given warning signs to monitor for signs of endomyometritis. Bottle feeding with minimal difficulty. Assist as needed Incision healing well. Continue to keep clean and dry. Lochia minimal. Continue to monitor for appropriate lochia. Continue routine post-operative care Patient with O- blood type and with O+ blood. Patient received RhoGAM on 10/18/2017. Patient was seen by social work who recommends for continued close monitoring of situation in setting of mild cognitive defect of the patient and social history of father of baby. Not necessary for involvement of child protective services at this time. Discharge home today Garth Haider MD 9:13 AM 10/19/2017
--- NOTE | 2017-10-19 09:25 | PCM.DCSUM1 ---
Discharge Summary - Hospital Course Free Text/Narrative:: Procedure in Detail: The patient was seen on labor and delivery after she was being evaluated and determined to have nonreassuring heart tones remote from delivery in the setting of chorioamnionitis and preeclampsia. Was felt that for safety of the that primary section should be performed. This was discussed with the patient and she agreed to the procedure. The risks, benefits and complications were discussed with the patient. The patient desired to proceed with section and appropriate consents were signed. The patient was taken to operating room #1. A Time Out was held and the patient was identified using 2 identifiers and the procedure was confirmed. The patient was dosed through epidural anesthesia and was placed in dorsal supine position with leftward tilt. The patient was prepped and draped in the usual sterile manner. The abdominal skin was tested and the epidural anesthesia was found to be adequate. The skin was injected with 0.5% marcaine for local anesthesia. A Pfannenstiel skin incision was made and carried down through the subcutaneous tissue to the fascia with the scapel. The fascia was nicked in the midline using a scalpel and the fascial incision was extended transversely with Treviño scissors. The superior aspect of the fascia was grasped with Shanna clamps and tented upwards. The fascia was from the underlying rectus muscle bluntly and sharply with Treviño scissors. Attention was then turned to the inferior aspect of the fascia and was grasped using Sahnna clamps and tented upwards. The underlying rectus muscle was dissected off bluntly and sharply with Treviño scissors. The peritoneum was identified and entered bluntly. The bladder blade was inserted and the lower uterine segment was identified. A low transverse uterine incision was made sharply with a scalpel and extended laterally bluntly. The 's head was brought to the uterine incision, the bladder blade was removed and the was delivered atraumatically. A live male infant was delivered in vertex position at 0404, wt of 3110 grams, 6 pounds and 13.7 ounces. APGARS were 8 & 9. The nose and mouth were suctioned with bulb suction, the cord was doubly clamped and cut and was transferred to the awaiting chorus master. The placenta was removed intact and appeared normal with a three vessel cord. The placenta was sent for pathology. The uterus was exteriorized and the uterine cavity was cleaned using lap sponges. The hysterotomy was closed with a running locked suture of 0-Vicryl. A second suture of 0-Vicryl was used to imbricate the hysterotomy. The hysterotomy was hemostatic. The uterus, tubes and ovaries appeared overall normal except for a small fibroid on the posterior edge of the uterine fundus near the left fallopian tube. The uterus was then returned into the abdominal cavity. The hysterotomy was noted to remain hemostatic inside the abdominal cavity. The fascia was noted to be hemostatic and the fascia was then reapproximated with running sutures of 0-Vicryl. The skin was reapproximated using 4-0 Monocryl and a Prineo dressing was applied over the incision. Instrument, sponge, and needle counts were correct prior to the abdominal closure and at the conclusion of the case. HPI Initial Comments: Procedure in Detail: The patient was seen on labor and delivery after she was being evaluated and determined to have nonreassuring heart tones remote from delivery in the setting of chorioamnionitis and preeclampsia. Was felt that for safety of the infant that primary section should be performed. This was discussed with the patient and she agreed to the procedure. The risks, benefits and complications were discussed with the patient. The patient desired to proceed with section and appropriate consents were signed. The patient was taken to operating room #1. A Time Out was held and the patient was identified using 2 identifiers and the procedure was confirmed. The patient was dosed through epidural anesthesia and was placed in dorsal supine position with leftward tilt. The patient was prepped and draped in the usual sterile manner. The abdominal skin was tested and the epidural anesthesia was found to be adequate. The skin was injected with 0.5% marcaine for local anesthesia. A Pfannenstiel skin incision was made and carried down through the subcutaneous tissue to the fascia with the scapel. The fascia was nicked in the midline using a scalpel and the fascial incision was extended transversely with Treviño scissors. The superior aspect of the fascia was grasped with Shanna clamps and tented upwards. The fascia was from the underlying rectus muscle bluntly and sharply with Treviño scissors. Attention was then turned to the inferior aspect of the fascia and was grasped using Shanna clamps and tented upwards. The underlying rectus muscle was dissected off bluntly and sharply with Treviño scissors. The peritoneum was identified and entered bluntly. The bladder blade was inserted and the lower uterine segment was identified. A low transverse uterine incision was made sharply with a scalpel and extended laterally bluntly. The 's head was brought to the uterine incision, the bladder blade was removed and the was delivered atraumatically. A live male infant was delivered in vertex position at 0404, wt of 3110 grams, 6 pounds and 13.7 ounces. APGARS were 8 & 9. The nose and mouth were suctioned with bulb suction, the cord was doubly clamped and cut and infant was transferred to the awaiting chorus master. The placenta was removed intact and appeared normal with a three vessel cord. The placenta was sent for pathology. The uterus was exteriorized and the uterine cavity was cleaned using lap sponges. The hysterotomy was closed with a running locked suture of 0-Vicryl. A second suture of 0-Vicryl was used to imbricate the hysterotomy. The hysterotomy was hemostatic. The uterus, tubes and ovaries appeared overall normal except for a small fibroid on the posterior edge of the uterine fundus near the left fallopian tube. The uterus was then returned into the abdominal cavity. The hysterotomy was noted to remain hemostatic inside the abdominal cavity. The fascia was noted to be hemostatic and the fascia was then reapproximated with running sutures of 0-Vicryl. The skin was reapproximated using 4-0 Monocryl and a Prineo dressing was applied over the incision. Instrument, sponge, and needle counts were correct prior to the abdominal closure and at the conclusion of the case. Brief History: Procedure in Detail: The patient was seen on labor and delivery after she was being evaluated and determined to have nonreassuring heart tones remote from delivery in the setting of chorioamnionitis and preeclampsia. Was felt that for safety of the infant that primary section should be performed. This was discussed with the patient and she agreed to the procedure. The risks, benefits and complications were discussed with the patient. The patient desired to proceed with section and appropriate consents were signed. The patient was taken to operating room #1. A Time Out was held and the patient was identified using 2 identifiers and the procedure was confirmed. The patient was dosed through epidural anesthesia and was placed in dorsal supine position with leftward tilt. The patient was prepped and draped in the usual sterile manner. The abdominal skin was tested and the epidural anesthesia was found to be adequate. The skin was injected with 0.5% marcaine for local anesthesia. A Pfannenstiel skin incision was made and carried down through the subcutaneous tissue to the fascia with the scapel. The fascia was nicked in the midline using a scalpel and the fascial incision was extended transversely with Treviño scissors. The superior aspect of the fascia was grasped with Shanna clamps and tented upwards. The fascia was from the underlying rectus muscle bluntly and sharply with Treviño scissors. Attention was then turned to the inferior aspect of the fascia and was grasped using Shanna clamps and tented upwards. The underlying rectus muscle was dissected off bluntly and sharply with Treviño scissors. The peritoneum was identified and entered bluntly. The bladder blade was inserted and the lower uterine segment was identified. A low transverse uterine incision was made sharply with a scalpel and extended laterally bluntly. The infant's head was brought to the uterine incision, the bladder blade was removed and the was delivered atraumatically. A live male was delivered in vertex position at 0404, wt of 3110 grams, 6 pounds and 13.7 ounces. APGARS were 8 & 9. The nose and mouth were suctioned with bulb suction, the cord was doubly clamped and cut and infant was transferred to the awaiting chorus master. The placenta was removed intact and appeared normal with a three vessel cord. The placenta was sent for pathology. The uterus was exteriorized and the uterine cavity was cleaned using lap sponges. The hysterotomy was closed with a running locked suture of 0- Vicryl. A second suture of 0-Vicryl was used to imbricate the hysterotomy. The hysterotomy was hemostatic. The uterus, tubes and ovaries appeared overall normal except for a small fibroid on the posterior edge of the uterine fundus near the left fallopian tube. The uterus was then returned into the abdominal cavity. The hysterotomy was noted to remain hemostatic inside the abdominal cavity. The fascia was noted to be hemostatic and the fascia was then reapproximated with running sutures of 0-Vicryl. The skin was reapproximated using 4-0 Monocryl and a Prineo dressing was applied over the incision. Instrument, sponge, and needle counts were correct prior to the abdominal closure and at the conclusion of the case. - Discharge Data Discharge Date: 10/19/17 Discharge Disposition: Home, Self-Care 01 Condition: Good - Discharge Diagnosis/Problem(s) (1) 37 weeks gestation of SNOMED Code(s): 95930670 ICD Code: Z3A.37 - 37 WEEKS GESTATION OF Status: Acute Current Visit: Yes (2) Rh negative state in antepartum period SNOMED Code(s): 778880406 ICD Code: O09.899 - SUPERVISION OF OTHER HIGH RISK PREGNANCIES, UNSP TRIMESTER; Z67.91 - UNSPECIFIED BLOOD TYPE, RH NEGATIVE Status: Acute Current Visit: Yes (3) Rupture of membranes with clear amniotic fluid SNOMED Code(s): 45060976, 167061469 ICD Code: [id number] - Status: Acute Current Visit: Yes (4) Chorioamnionitis, delivered, current hospitalization SNOMED Code(s): 13209880 ICD Code: O41.1290 - CHORIOAMNIONITIS, UNSP TRIMESTER, NOT APPLICABLE OR UNSP Status: Acute Current Visit: Yes (5) Pre-eclampsia SNOMED Code(s): 807669589 ICD Code: O14.90 - UNSPECIFIED PRE-ECLAMPSIA, UNSPECIFIED TRIMESTER Status : Acute Current Visit: Yes (6) Non-reassuring heart tones, delivered, current hospitalization SNOMED Code(s): 139065846 ICD Code: O76 - ABNLT IN HEART RATE AND RHYTHM COMP LABOR AND DELIVERY Status: Acute Current Visit: Yes (7) delivery delivered SNOMED Code(s): 586225804 ICD Code: O82 - ENCOUNTER FOR DELIVERY WITHOUT INDICATION Status: Acute Current Visit: Yes - Patient Summary/Data Operative Procedure(s) Performed: Primary section Complications: Chorioamnionitis and pre-eclampsia without severe features Consults: Consultations 10/17/17 06:22 Consult to [employer] [CONS] Routine Hospital Course: Jen Burns was admitted for prelabor spontaneous rupture membranes. She developed chorioamnionitis and was started on ampicillin and gentamicin for treatment. She continued to have elevated temperatures and nonreassuring heart tones remote from delivery with cervical exam of 4 cm. Decision was made to proceed with primary section for nonreassuring heart tones and remote from delivery in the setting of chorioamnionitis. Prior to going back to the OR she developed preeclampsia without severe features. She was taken back to the OR and given additional medicine through her epidural for anesthesia. She was given Ancef for antibiotic prophylaxis. She was prepped and draped in the normal fashion. On 10/17/2017 she had a primary delivery of a live male infant at 0404. Apgars of 8 and 9. Weight of 3110 g ( 6 pounds 13.7 ounces). She was closed in a normal fashion. There were no complications with the procedure. Please see the operative report for full details. Her post operative course was complicated by additional fevers after delivery and she was continued on antibiotics of ampicillin, gentamicin and clindamycin for 1 additional dose after delivery. She was afebrile after her last dose of antibiotics and for the remainder of her stay. Her pain was well controlled and she had minimal lochia. She was ambulating, tolerating a regular diet and voiding normally. She was passing flatus and has had a bowel movement. She was bottle feeding. She was afebrile and her hematocrit was 32.2 on POD #1. She desired to be discharged home on the morning of POD #2. Her blood type is O- and 's blood type was O+. She was given RhoGAM in the morning of 10/18/2017. Patient is to follow-up on Wednesday , 10/22/2017, for blood pressure check and in clinic in 2 weeks for postop check. Social work saw patient prior to discharge and did not have any concerns about infant going home with patient but does recommend for close monitoring of situation. - Patient Instructions Diet: Regular Diet as Tolerated Activity: As Tolerated, No Lifting Over 25 Pounds Activity, Other: Nothing in the vagina for 6 weeks Driving: Do Not Drive (While on narcotic medications) Showering/Bathing: May Shower Wound/Incision Care: Keep Operative Site/Wound Site Clean and Dry Notify Provider of: Fever, Increased Pain, Swelling and Redness, Drainage, Nausea and/or Vomiting Other/Special Instructions: Please contact our office if she had heavy vaginal bleeding enough to soak a pad in less than an hour for several hours or if you have any bleeding or pus from the incision. - Discharge Plan Prescriptions/Med Rec: Acetaminophen/oxyCODONE [Percocet 325-5 MG] 1 - 2 tab PO Q6H PRN #20 tablet PRN Reason: Pain Home Medications: Home Meds Calcium Carbonate [Calcium] 500 mg PO DAILY 10/16/17 [History] PNV95/Ferrous Fumarate/FA [ Tablet] 1 each PO DAILY 10/16/17 [History] Acetaminophen/oxyCODONE [Percocet 325-5 MG] 1 - 2 tab PO Q6H PRN #20 tablet 07/04 [Rx] Docusate Sodium [Colace] 100 mg PO Q12H PRN cap 10/19/17 [Rx] Ibuprofen [Motrin] 600 mg PO Q6H PRN tablet 10/19/17 [Rx] Patient Handouts: Care After Delivery Referrals: Garth Haider MD [Physician] - (Please follow-up in clinic on 10/22/2017 , for a blood pressure check with the nurse and make an appointment for postop check in 2 weeks.) - Discharge Summary/Plan Comment DC Time >30 min.: No - Patient Data Vitals - Most Recent: Last Vital Signs Temp 36.4 C 10/19/17 08:20 Pulse 52 L 10/19/17 08:20 Resp 18 10/19/17 08:20 BP 124/82 10/19/17 08:20 Pulse Ox 98 10/19/17 08:20 Weight - Most Recent: 81.193 kg I&O - Last 24 hours: Intake & Output 10/18/17 10/19/17 10/19/17 22:59 06:59 14:59 Intake Total 100 Output Total 200 Balance -100 Lab Results - Last 24 hrs: Laboratory Results - last 24 hr 10/16/17 Range/Units 06:35 RPR Non-reactive (NONREACTIVE) Med Orders - Current: Current Medications Acetaminophen (Tylenol) 650 mg PO Q6H PRN PRN Reason: Fever Last Admin: 10/17/17 20:44 Dose: 650 mg Diphenhydramine HCl (Benadryl) 25 mg IVPUSH Q6H PRN PRN Reason: Itching or Nausea Docusate Sodium (Colace) 100 mg PO Q12H PRN PRN Reason: Constipation Emollient Ointment (Lansinoh Hpa) 0 gm TOP ASDIRECTED PRN PRN Reason: Sore Nipples Ephedrine Sulfate (Ephedrine Sulfate) 5 mg IVPUSH SEECOMMENT PRN PRN Reason: Other Oxytocin/Lactated Ringer's (Pitocin In Lr 10 Units/1,000 Ml) 10 unit in 1,000 mls @ 100 mls/hr IV .CONTINUOUS GREGORIO; Protocol Ibuprofen (Motrin) 600 mg PO Q6H PRN PRN Reason: mild pain or fever Last Admin: 10/18/17 20:22 Dose: 600 mg Naloxone HCl (Narcan) 0.1 mg IVPUSH SEECOMMENT PRN PRN Reason: Respiratory Depression Ondansetron HCl (Zofran Odt) 4 mg PO Q4H PRN PRN Reason: Nausea/Vomiting Oxycodone/Acetaminophen (Percocet 325-5 Mg) 1 tab PO Q6H PRN PRN Reason: Pain (moderate 4-6) Oxycodone/Acetaminophen (Percocet 325-5 Mg) 2 tab PO Q6H PRN PRN Reason: Pain (severe 7-10) Prenat Multivit/Doniphan/Iron/Folic Ac ( Plus Iron) 1 each PO DAILY GREGORIO Last Admin: 10/18/17 08:27 Dose: 1 each Sodium Chloride (Saline Flush) 10 ml FLUSH ASDIRECTED PRN PRN Reason: Keep Vein Open Discontinued Medications Acetaminophen (Tylenol) 650 mg PO Q6H PRN PRN Reason: Pain (Mild 1-3) and fever Last Admin: 10/17/17 09:56 Dose: 650 mg Bupivacaine HCl (Marcaine 0.5%) Confirm Administered Dose 30 ml .ROUTE .STK-MED ONE Stop: 10/17/17 03:18 Last Admin: 10/17/17 03:57 Dose: 20 ml Bupivacaine HCl (Sensorcaine-Mpf 0.25%) 10 ml .ROUTE .STK-MED ONE Stop: 10/17/17 02:01 Cefazolin Sodium (Ancef) Confirm Administered Dose 2 gm .ROUTE .STK-MED ONE Stop: 10/17/17 03:20 Citric Acid/Sodium Citrate (Bicitra Solution) Confirm Administered Dose 30 ml .ROUTE .STK-MED ONE Stop: 10/17/17 03:06 Citric Acid/Sodium Citrate (Bicitra Solution) 30 ml PO ONETIME ONE Stop: 10/17/17 03:11 Last Admin: 10/17/17 03:21 Dose: 30 ml Diphenhydramine HCl (Benadryl) 25 mg IVPUSH Q6H PRN PRN Reason: pruritis Diphenhydramine HCl (Benadryl) 25 mg IVPUSH Q6H PRN PRN Reason: pruritis Ephedrine Sulfate (Ephedrine Sulfate) 5 mg IVPUSH ASDIRECTED PRN PRN Reason: Hypotension Ephedrine Sulfate (Ephedrine Sulfate) 5 mg IVPUSH ASDIRECTED PRN PRN Reason: Hypotension Fentanyl (Sublimaze) Confirm Administered Dose 100 mcg .ROUTE .[employer] ONE Stop: 10/16/17 20:21 Last Admin: 10/16/17 22:51 Dose: Not Given Fentanyl (Sublimaze) 100 mcg EPIDUR Q3H PRN PRN Reason: Pain Last Admin: 10/16/17 21:07 Dose: 100 mcg Fentanyl (Sublimaze) Confirm Administered Dose 100 mcg .ROUTE .[employer] Stop: 10/17/17 03:24 Fentanyl (Sublimaze) 50 mcg IVPUSH Q5M PRN PRN Reason: Pain Fentanyl/Bupivacaine HCl (Fentanyl/Bupivacaine/Ns 2 Mcg-0.125% 100 Ml) 100 ml EPIDUR ASDIRECTED [facility] Last Admin: 10/16/17 21:10 Dose: 100 ml Lactated Ringer's (Ringers, Lactated) 1,000 mls @ 100 mls/hr IV ASDIRECTED [facility] Last Admin: 10/16/17 21:46 Dose: 100 mls/hr Oxytocin/Lactated Ringer's (Pitocin In Lr 10 Units/1,000 Ml) 10 unit in 1,000 mls @ 100 mls/hr IV .CONTINUOUS GREGORIO Oxytocin/Lactated Ringer's (Pitocin In Lr 10 Units/1,000 Ml) 10 unit in 1,000 mls @ 12 mls/hr IV TITRATE GREGORIO; Protocol Last Titration: 10/17/17 02:16 Dose: 0 munits/min, 0 mls/hr Ampicillin Sodium 2 gm/ Sodium (Chloride) 100 mls @ 200 mls/hr IV Q6H [facility] Last Admin: 10/17/17 02:00 Dose: 200 mls/hr Gentamicin Sulfate 400 mg/ (Sodium Chloride) 110 mls @ 200 mls/hr IV Q24H [facility] Last Admin: 10/16/17 21:48 Dose: 200 mls/hr Sodium Chloride (Normal Saline) Confirm Administered Dose 100 mls @ as directed .ROUTE .[facility] ONE Stop: 10/16/17 20:35 Last Admin: 10/16/17 22:51 Dose: Not Given Cefazolin Sodium/Dextrose 2 gm (/ Premix) 50 mls @ 100 mls/hr IV ONETIME ONE Stop: 10/17/17 03:39 Lactated Ringer's (Ringers, Lactated) 1,000 mls @ 125 mls/hr IV ASDIRECTED GREG[facility]IO Oxytocin/Lactated Ringer's (Pitocin In Lr 10 Units/1,000 Ml) 10 unit in 1,000 mls @ 100 mls/hr IV ASDIRECTED GREG[facility]IO; Protocol Lactated Ringer's (Ringers, Lactated) Confirm Administered Dose 2,000 mls @ as directed .ROUTE .[facility] ONE Stop: 10/17/17 03:20 Dextrose/Lactated Ringer's (Dextrose 5%-Lactated Ringers) 1,000 mls @ 125 mls/ hr IV ASDIRECTED [facility] Stop: 10/17/17 14:21 Last Admin: 10/17/17 09:24 Dose: 125 mls/hr Ampicillin Sodium 2 gm/ Sodium (Chloride) 100 mls @ 200 mls/hr IV ONETIME ONE Stop: 10/17/17 10:29 Last Admin: 10/17/17 09:47 Dose: 200 mls/hr Clindamycin Phosphate 900 mg/ (Sodium Chloride) 106 mls @ 100 mls/hr IV ONETIME ONE Stop: 10/17/17 11:03 Last Admin: 10/17/17 11:05 Dose: 100 mls/hr Gentamicin Sulfate 400 mg/ (Sodium Chloride) 110 mls @ 200 mls/hr IV ONETIME ONE Stop: 10/17/17 23:32 Last Admin: 10/17/17 22:37 Dose: 200 mls/hr Ketorolac Tromethamine (Toradol) Confirm Administered Dose 30 mg .ROUTE .[facility] ONE Stop: 10/17/17 03:20 Ketorolac Tromethamine (Toradol) 30 mg IVPUSH Q6H [facility] Stop: 10/17/17 22:31 Last Admin: 10/17/17 22:37 Dose: 30 mg Lidocaine/Epinephrine (Xylocaine-Mpf 2%-Epi 1:200,000) Confirm Administered Dose 20 ml .ROUTE .STK-MED ONE Stop: 10/17/17 03:24 Meperidine HCl (Demerol) 12.5 mg IVPUSH ONETIME PRN PRN Reason: shivering Meperidine HCl (Demerol) Confirm Administered Dose 50 mg .ROUTE .STK-MED ONE Stop: 10/17/17 04:14 Metoclopramide HCl (Reglan) Confirm Administered Dose 10 mg .ROUTE .STK-MED ONE Stop: 10/17/17 03:06 Metoclopramide HCl (Reglan) 10 mg IVPUSH ONETIME ONE Stop: 10/17/17 03:11 Last Admin: 10/17/17 03:21 Dose: 10 mg Morphine Sulfate (Duramorph Pf) Confirm Administered Dose 10 mg .ROUTE .STK-MED ONE Stop: 10/17/17 03:20 Nalbuphine HCl (Nubain) 10 mg IVPUSH Q2H PRN PRN Reason: Pain (moderate 4-6) Last Admin: 10/16/17 19:35 Dose: 10 mg Ondansetron HCl (Zofran) 4 mg IVPUSH Q4H PRN PRN Reason: Nausea/Vomiting Ondansetron HCl (Zofran) Confirm Administered Dose 4 mg .ROUTE .STK-MED ONE Stop: 10/17/17 03:20 Ondansetron HCl (Zofran) 4 mg IVPUSH ONETIME PRN PRN Reason: Nausea/Vomiting Oxytocin (Pitocin) Confirm Administered Dose 10 unit .ROUTE .STK-MED ONE Stop: 10/17/17 03:20 Sodium Bicarbonate (Sodium Bicarbonate 8.4%) Confirm Administered Dose 50 meq .ROUTE .STK-MED ONE Stop: 10/17/17 03:24 Sodium Chloride (Saline Flush) 10 ml FLUSH ASDIRECTED PRN PRN Reason: Keep Vein Open Sodium Chloride (Saline Flush) 10 ml FLUSH ASDIRECTED PRN PRN Reason: Keep Vein Open
== END 2017-10-19 12:31 | disposition home or self-care (01) | DRG 765 ==
LOC: JD.OBCHECK 14:52 → JD.OB 14:52 → JD.OBCHECK 16:42 → OBSVTOIN 10-17 04:04 → JD.OB 10-17 04:06
PROVIDERS: ADMIT Obstetrics & Gynecology; ATTEND Obstetrics & Gynecology
PROC: 10D00Z1 Extraction of Products of Conception, Low, Open Approach (ICD-10-PCS; principal; 2017-10-17)
DX: O42.02 Full-term premature rupture of membranes, onset of labor within 24 hours of rupture (principal); O41.1230 Chorioamnionitis, third trimester, not applicable or unspecified; Z3A.37 37 weeks gestation of pregnancy; Z37.0 Single live birth; O76 Abnormality in fetal heart rate and rhythm complicating labor and delivery; O14.14 Severe pre-eclampsia complicating childbirth; Z88.1 Allergy status to other antibiotic agents; Z91.040 Latex allergy status; Z91.048 Other nonmedicinal substance allergy status
CPT/HCPCS: 01968; 36415; 51702; 59025; 80053; 82570-QW; 84112; 84156; 85025; 85027; 85461; 86592; 86850; 86900; 86901; A9270-GY; J0290; J0690; J1580; J1885; J2175; J2270; J2300; J2405; J2590; J2765; J2790; J3010; J7030; J7042; J7120